=== PATIENT | male | born 2000 | race Caucasian/White ===

== ENCOUNTER 2018-07-31 08:51 | Emergency (ER) | payer MEDICAID ==
[~2018-07-31] VITALS: Ht 170.2 cm; Wt 63.6 kg
[2018-07-31 08:57] VITALS: BP 133/76
[2018-07-31] MEDS ORDERED: CYCL-1 PO (09:43)
[2018-07-31] MEDS ORDERED: IBUP-1984 PO (09:43)
[2018-07-31] MEDS ORDERED: orphenadrine citrate 60mg/2ml inj. IM ONE (09:45)
[2018-07-31] MEDS: ketorolac trometh inj. 60 MG/2 ML VIAL IM ONE (09:46)
[2018-07-31] MEDS: HYDROcodone/acetaminophen 5mg/325mg tablet PO ONE (09:47)
[2018-07-31] MEDS: cyclobenzaprine 10mg tablet PO ONE (10:03)
== END 2018-07-31 10:07 | disposition home or self-care (01) ==
LOC: ER 08:51
DX: S46.811A Strain of other muscles, fascia and tendons at shoulder and upper arm level, right arm, initial encounter (principal); M62.838 Other muscle spasm; M19.011 Primary osteoarthritis, right shoulder; Z88.6 Allergy status to analgesic agent; Z88.8 Allergy status to other drugs, medicaments and biological substances; W50.0XXA Accidental hit or strike by another person, initial encounter; Y93.89 Activity, other specified; Y92.89 Other specified places as the place of occurrence of the external cause; Y99.9 Unspecified external cause status
CPT/HCPCS: 96372; 99283; J1885; J2360

== ENCOUNTER 2018-10-14 17:56 | Emergency (ER) | payer MEDICAID ==
[~2018-10-14] VITALS: Ht 170.2 cm; Wt 64.5 kg
[~2018-10-14 17:56] MED LIST: CYCL-1 PO
[2018-10-14 17:57] VITALS: BP 149/94
[2018-10-14] MEDS ORDERED: HYDR-4383 PO (19:50)
[2018-10-14] MEDS ORDERED: HYDROcodone/acetaminophen 5mg/325mg tablet PO ONE (19:50)
== END 2018-10-14 20:04 | disposition home or self-care (01) ==
LOC: ER 17:56
DX: S02.2XXA Fracture of nasal bones, initial encounter for closed fracture (principal); Z88.8 Allergy status to other drugs, medicaments and biological substances; Y08.89XA Assault by other specified means, initial encounter; Y93.89 Activity, other specified; Y92.89 Other specified places as the place of occurrence of the external cause; Y99.8 Other external cause status
CPT/HCPCS: 99283

== ENCOUNTER 2020-02-13 12:45 | Emergency (ER) | payer MEDICAID ==
[~2020-02-13] VITALS: Ht 180.3 cm; Wt 65.9 kg
[~2020-02-13 12:45] MED LIST changes: +HYDR-4383 PO
[2020-02-13 12:49] VITALS: BP 147/90
[2020-02-13] MEDS ORDERED: ibuprofen tablet 400 MG TABLET PO ONE (13:15)
== END 2020-02-13 14:07 | disposition home or self-care (01) ==
LOC: ER 12:45
DX: S99.911A Unspecified injury of right ankle, initial encounter (principal); M25.571 Pain in right ankle and joints of right foot; M25.471 Effusion, right ankle; F17.200 Nicotine dependence, unspecified, uncomplicated; F12.90 Cannabis use, unspecified, uncomplicated; Z72.89 Other problems related to lifestyle; Z88.8 Allergy status to other drugs, medicaments and biological substances; Z79.899 Other long term (current) drug therapy; W18.39XA Other fall on same level, initial encounter; Y93.89 Activity, other specified; Y92.89 Other specified places as the place of occurrence of the external cause; Y99.8 Other external cause status
CPT/HCPCS: 73610; 99283

== ENCOUNTER 2021-04-03 14:07 | Emergency (ER) | payer MEDICAID ==
[~2021-04-03] VITALS: Ht 180.3 cm; Wt 63.6 kg
[2021-04-03] MEDS ORDERED: mag hydrox/Alum hydrox/simeth 30ml oral suspension PO ONE (14:55)
[2021-04-03] MEDS ORDERED: LIDOcaine Viscous 15ml cup TP ONE (14:55)
[2021-04-03] MEDS ORDERED: ketorolac tromethamine 15mg/ml inj. IV ONE (14:55)
[2021-04-03] MEDS ORDERED: normal saline 1000ML IV soln IVB ONE ×2 (14:55→18:05)
[2021-04-03 15:32] LABS: BASOPHILS # (AUTO) 0.1 X10'3 (0-0.2); BASOPHILS % (AUTO) 0.5 % (0-1); EOSINOPHILS # (AUTO) 0.1 X10'3 (0-0.9); EOSINOPHILS % (AUTO) 1.1 % (0-6); HEMATOCRIT 48.2 % (42.0-52.0); HEMOGLOBIN 16.1 g/dl (14.0-17.9); LYMPHOCYTES # (AUTO) 4.5 X10'3 (1.1-4.8); LYMPHOCYTES % (AUTO) 35.7 % (21-51); MEAN CORPUSCULAR HEMOGLOBIN 31.5 PG (27.0-31.0); MEAN CORPUSCULAR HGB CONC 33.4 g/dL (33.0-36.5); MEAN CORPUSCULAR VOLUME 94.2 FL (78-98); MONOCYTES # (AUTO) 1.5 X10'3 (0-0.9); MONOCYTES % (AUTO) 11.7 % (2-12); NEUTROPHILS # (AUTO) 6.5 X10'3 (1.8-7.7); PLATELET COUNT 502 X10'3 (140-440); RED BLOOD COUNT 5.11 X10'6 (4.70-6.10); RED CELL DISTRIBUTION WIDTH 13.9 % (11.5-14.5); WHITE BLOOD COUNT 12.7 X10'3 (4.5-11.0)
[2021-04-03 15:37] LABS: CLARITY,URINE SLIGHTLY CLOUDY (Clear); COLOR,URINE YELLOW (Yellow); GLUCOSE, URINE NEGATIVE (Neg); KETONES,URINE NEGATIVE (Neg); LEUKOCYTE ESTERASE ,URINE NEGATIVE (Neg); NITRITES, URINE NEGATIVE (Neg); OCCULT BLOOD,URINE NEGATIVE (Neg); PROTEIN,URINE NEGATIVE (Neg); UROBILINOGEN,URINE 0.2 E.U/dL (0.2-1.0)
[2021-04-03 15:41] LABS: UA COLLECTION TYPE NON-SPECIFIED
[2021-04-03 15:42] LABS: WBC,URINE 0-4 /HPF (0-4)
[2021-04-03 15:43] LABS: AMORPHOUS URATES 3+; BACTERIA,URINE FEW /HPF (Neg); MUCUS STRANDS FEW /LPF (Neg); RBC,URINE NONE SEEN /HPF (0-2); SQUAMOUS EPITHELIAL CELL,UR NONE SEEN /LPF (FEW)
[2021-04-03 15:52] LABS: URINE AMPHETAMINE SCREEN NEGATIVE (Neg); URINE BARBITUATE SCREEN NEGATIVE (Neg); URINE BENZODIAZEPINES SCREEN NEGATIVE (Neg); URINE CANNABINOID SCREEN POSITIVE (Neg); URINE COCAINE SCREEN NEGATIVE (Neg); URINE METHADONE SCREEN NEGATIVE (Neg); URINE OPIATE SCREEN NEGATIVE (Neg); URINE PHENCYCLIDINE SCREEN NEGATIVE (Neg)
[2021-04-03 15:58] LABS: ALANINE AMINOTRANSFERASE 19 U/L (12-78); ALBUMIN 4.6 G/DL (3.4-5.0); ALBUMIN/GLOBULIN RATIO 1.4 (1.1-1.5); ALKALINE PHOSPHATASE 70 IU/L (46-116); ANION GAP 12 (8-16); ASPARTATE AMINO TRANSFERASE 14 U/L (10-37); BILIRUBIN,TOTAL 0.6 MG/DL (0.1-1.0); BLOOD UREA NITROGEN 13 MG/DL (7-18); BUN/CREATININE RATIO 11.5 (5.4-32.0); CALCIUM 9.3 MG/DL (8.5-10.1); CHLORIDE 102 MMOL/L (99-107); CREATININE 1.13 MG/DL (0.60-1.10); GLUCOSE 91 MG/DL (70-104); LIPASE 53 U/L (73-393); MAGNESIUM 2.2 MG/DL (1.5-2.4); POTASSIUM 4.1 MMOL/L (3.5-5.1); SODIUM 141 MMOL/L (135-145); TOTAL CARBON DIOXIDE 27.5 MMOL/L (24-32); eGFR 80 ML/MIN
[2021-04-03 17:41] VITALS: BP 135/88
[2021-04-03] MEDS ORDERED: haloperidol lactate 5mg/ml inj IM ONE (18:05)
[2021-04-03] MEDS ORDERED: ondansetron/PF 4mg/2ml inj IV ONE (18:05)
[2021-04-03] MEDS ORDERED: diphenhydrAMINE 50 mg/ml inj IV ONE (18:05)
[2021-04-03] MEDS ORDERED: ketorolac trometh. 30mg/ml inj. IV ONE (18:50)
[2021-04-03] MEDS ORDERED: PROM12.512 PO (18:54)
[2021-04-03] MEDS ORDERED: SIME80TA15 PO (18:54)
[2021-04-03] MEDS ORDERED: LORazepam 2 mg/ml vial IV ONE (19:15)
== END 2021-04-03 19:23 | disposition home or self-care (01) ==
LOC: ER 14:08
DX: R11.15 Cyclical vomiting syndrome unrelated to migraine (principal); R10.10 Upper abdominal pain, unspecified; F12.10 Cannabis abuse, uncomplicated; Z88.8 Allergy status to other drugs, medicaments and biological substances; Z79.899 Other long term (current) drug therapy
CPT/HCPCS: 36415; 80053; 80305; 81001; 83690; 83735; 85025; 96361; 96372; 96374; 96375; 99284; J1630; J1885; J2405; J7030

== ENCOUNTER 2021-08-05 18:16 | Emergency (ER) | payer MEDICAID ==
[~2021-08-05] VITALS: Ht 180.3 cm; Wt 65.9 kg
[~2021-08-05 18:16] MED LIST changes: +PROM12.512 PO
[2021-08-05 18:37] VITALS: BP 135/98
--- NOTE | 2021-08-05 22:18 | NUR ---
PT STATES SEVERE EAR PAIN, ADVISED PROVIDER WHO PUT IN VERBAL ORDER OF 800MG OF IBUPROFEN
[2021-08-05] MEDS ORDERED: ibuprofen tablet 400 MG TABLET PO ONE (22:20)
[2021-08-05] MEDS ORDERED: amox tr/potassium clavulanate 875/125mg TAB PO ONE (22:35)
[2021-08-05] MEDS ORDERED: AMOX-422 PO (23:05)
== END 2021-08-06 00:03 | disposition home or self-care (01) ==
LOC: ER 18:16
DX: H66.92 Otitis media, unspecified, left ear (principal); F12.10 Cannabis abuse, uncomplicated; Z88.5 Allergy status to narcotic agent; Z88.8 Allergy status to other drugs, medicaments and biological substances; Z79.899 Other long term (current) drug therapy; Z20.822 Contact with and (suspected) exposure to COVID-19
CPT/HCPCS: 71045; 87635; 99284; C9803; 99283